=== PATIENT | female | born 1955 | race Caucasian/White ===

== ENCOUNTER → 2019-06-25 | Outpatient (CLI) | payer OTHER ==
[~2019-06-25] MED LIST: ASPIRIN EC81 M1; DYAZIDE; KEFLEX500 MG PO; LIPITOR20 MG; ZOLOFT 50 MG TA50 M1
== END ==
LOC: CAT 08:10
DX: Z13.6 Encounter for screening for cardiovascular disorders (principal); E78.00 Pure hypercholesterolemia, unspecified; I25.10 Atherosclerotic heart disease of native coronary artery without angina pectoris